=== PATIENT | male | born 1945 | race Two or more races ===

== ENCOUNTER 2024-12-27 15:03 | Inpatient (IN) | payer OTHER ==
[~2024-12-27] VITALS: Ht 152.4 cm; Wt 90.7 kg
[2024-12-27] MEDS ORDERED: GABAPENTIN300 M2 PO (16:07)
[2024-12-27] MEDS ORDERED: AMLODIPINE-BEN1 EAC2 PO (16:07)
[2024-12-27] MEDS ORDERED: ATORVASTATIN CA80 MG PO (16:07)
[2024-12-27] MEDS ORDERED: PANTOPRAZOLE SO20 MG PO (16:07)
[2024-12-27] MEDS ORDERED: CARVEDILOL25 M1 PO (16:07)
--- NOTE | 2024-12-27 16:08 | NUR ---
SE RECIBE PTE ALERTA Y ORIENTADO X3 AMBULANDO A TRIAGE CON REFERIDO DE DR PINTO QUIEN INDICA PASAR POR EMERGENCIAS YA QUE PTE PRESENTO BRADICADIO DE 30 LPM EN CLINICA. AL MOMENTO DE TRIAGE SE MIDEN SV Y SE OBSERVA QUE MAQUINA DE VITALES PRESENTA 32 LPM, SIN EMBARGO AL MOMENTO DE REALIZA EKG, EL MIMSO PRESENTA 69 LPM. SE PRESENTA EKG A DR. HERNANDEZ QUIEN INDICA UBICAR PTE EN CHAD. SE UBICA PTE.
[2024-12-27] MEDS ORDERED: 0.9 % SODIUM CHLORIDE 1,000 ML IV STA (18:10)
--- NOTE | 2024-12-27 19:06 | NUR ---
PTE ALERTA Y ORIENTADA X3. SE EDUCA A PTE SOBRE MAGGIE DE MUESTRAS Y TRATAMIENTO MEDICO ORDENADO POR MD, PTE REFIERE ENTENDER. SE REALIZAN ANDREIA DE MUESTRAS Y SE ADMINISTRA TRATAMIENTO MEDICO BAJO MEDIDAS ASEPTICAS. SE REALIZA EKG
[2024-12-27] MEDS ORDERED: NITROGLYCERIN IN 5 % DEXTROSE 50 MG/250 ML KIT IV STA (19:07)
[2024-12-27] MEDS ORDERED: NITROGLYCERIN IN 5 % DEXTROSE 50 MG/250 ML BOTTLE IV ONE (19:11)
[2024-12-27 19:22] LABS: HEMATOCRIT 30.3 % (39.0-48.0); HEMOGLOBIN 10.1 g/dL (13-16.00); MEAN CELL VOLUME 87.6 fL (80.0-100.00); MEAN CORPUSCULAR HEMOGLOBIN 29.2 pg (27.00-32.0); MEAN CORPUSCULAR HGB CONC 33.3 g/dl (32.0-36.0); RED BLOOD COUNT 3.46 M/uL (4.00-6.00); RED CELL DISTRIBUTION WIDTH 14.9 % (11.5-14.5)
[2024-12-27 19:23] LABS: PLATELET COUNT 90 K/uL (150-450)
[2024-12-27 19:38] LABS: INR 1.24; PROTHROMBIN TIME 13.3 SECONDS (9.0-11.5)
[2024-12-27 19:41] LABS: D DIMER 0.69 MG/L; PARTIAL THROMBOPLASTIN TIME 28.3 SECONDS (22.0-34.0)
[2024-12-27 19:46] LABS: ALBUMIN 3.7 gm/dL (3.4-5.0); BILIRUBIN TOTAL 1.49 mg/dL (0.3-1.2); CALCIUM 9.6 mg/dL (8.5-10.1); CREATININE SERUM 1.97 mg/dL (0.70-1.30); GFR 32.88; GLOBULINA 3.1 G/DL (2.4-3.5); TOTAL PROTEIN 6.8 gm/dL (6.4-8.2)
[2024-12-27] MEDS ORDERED: IPRATROPIUM BROMIDE 0.5 MG/2.5 ML AMPUL.NEB IH SCH (21:29)
[2024-12-27] MEDS ORDERED: ENOXAPARIN SODIUM 40 MG/0.4 ML SYRINGE SUBCUTANEO SCH (21:31)
[2024-12-27] MEDS ORDERED: PANTOPRAZOLE SODIUM 40 MG/VIAL VIAL IV SCH (21:31)
[2024-12-27] MEDS ORDERED: ATORVASTATIN CALCIUM 40 MG TABLET PO SCH (21:31)
[2024-12-27] MEDS ORDERED: ASPIRIN 81 MG TAB.CHEW PO SCH (21:31)
[2024-12-27] MEDS ORDERED: FUROsemide 20 MG/2 ML VIAL IV SCH (21:34)
[2024-12-27] MEDS ORDERED: NITROGLYCERIN IN 5 % DEXTROSE 250 ML IV SCH (21:45)
[2024-12-27] MEDS ORDERED: ACETAMINOPHEN 500 MG GEL..CAP PO PRN (21:45)
[2024-12-27] MEDS ORDERED: ENOXAPARIN SODIUM 40 MG/0.4 ML SYRINGE SUBCUTANEO ONE (22:27)
[2024-12-27] MEDS ORDERED: FUROsemide 20 MG/2 ML VIAL ONE (22:27)
[2024-12-27 23:16] VITALS: BP 132/65; O2SAT 100
[2024-12-27 23:16] LABS: ABG PH 7.404 (7.35-7.45)
[2024-12-27 23:17] LABS: ABG PO2 91.4 mmHg (80-100); BASE EXCESS -3.7 mmol/l; BICARBONATE 20.1 mmol/l (23-25); Tco2 21.1 mmol/l; allen test SATISFACTORY; o2 21 %; puncture site RADIAL LEFT
[2024-12-27 23:18] LABS: ABG pCO2 32.9 mmHg (35-45)
[2024-12-28] VITALS (15 sets, daily range): BP systolic 108–153; BP diastolic 46–77; O2SAT 99–100
[2024-12-28 00:41] LABS: PH,URINE 7.5 (5.0-8.0); URINE APPEARANCE Clear; URINE BILIRRUBIN Negative (NEGATIVE); URINE BLOOD Negative; URINE COLOR Yellow; URINE GLUCOSE Negative (NEGATIVE); URINE KETONE Negative (NEGATIVE); URINE LEUKOCYTE Negative; URINE NITRATE Negative; URINE PROTEIN Negative (NEGATIVE); URINE UROBILINOGEN 0.2 E.U./dl
[2024-12-28 00:45] LABS: URINE BACTERIA 13.4 uL (0.0-1933); URINE RBC 2.7 uL (0.0-20.8)
[2024-12-28 00:49] LABS: URINE EPITHELIAL CELLS 0.7 uL (0.0-38.8); URINE WBC 1.1 uL (0.0-23.2)
[2024-12-28 07:25] LABS: PHOSPHOROUS 3.3 mg/dL (2.5-4.9); TSH 0.969 uIU/mL (0.358-3.74)
[2024-12-28] MEDS ORDERED: FUROsemide 20 MG/2 ML VIAL ONE (20:57)
[2024-12-29] VITALS (12 sets, daily range): BP systolic 123–159; BP diastolic 49–92; O2SAT 97–100
[2024-12-29 06:25] LABS: HEMATOCRIT 29.9 % (39.0-48.0); HEMOGLOBIN 10.1 g/dL (13-16.00); MEAN CELL VOLUME 86.1 fL (80.0-100.00); MEAN CORPUSCULAR HEMOGLOBIN 29.2 pg (27.00-32.0); MEAN CORPUSCULAR HGB CONC 33.9 g/dl (32.0-36.0); RED BLOOD COUNT 3.48 M/uL (4.00-6.00); RED CELL DISTRIBUTION WIDTH 14.4 % (11.5-14.5)
[2024-12-29 06:30] LABS: PLATELET COUNT 93 K/uL (150-450)
[2024-12-29 07:29] LABS: ALBUMIN 3.6 gm/dL (3.4-5.0); BILIRUBIN TOTAL 1.9 mg/dL (0.3-1.2); CHOL HDL RATIO 2.5 (0-5.0); CREATININE SERUM 1.79 mg/dL (0.70-1.30); GFR 36.72; GLOBULINA 2.5 G/DL (2.4-3.5); MAGNESIUM 1.9 mg/dL (1.8-2.4); PHOSPHOROUS 3.5 mg/dL (2.5-4.9); POTASSIUM 4.09 mEq/L (3.5-5.1); TOTAL PROTEIN 6.1 gm/dL (6.4-8.2)
[2024-12-29] MEDS ORDERED: AMLODIPINE BESYLATE 5 MG TABLET PO SCH (17:00)
[2024-12-29] MEDS ORDERED: IRBESARTAN 150 MG TABLET PO SCH (21:06)
[2024-12-30 04:00] VITALS: BP 143/83; O2SAT 100
[2024-12-30 08:03] LABS: ALBUMIN 3.7 gm/dL (3.4-5.0); BILIRUBIN TOTAL 1.46 mg/dL (0.3-1.2); CALCIUM 9.3 mg/dL (8.5-10.1); CREATININE SERUM 2.16 mg/dL (0.70-1.30); GFR 29.56; GLOBULINA 2.8 G/DL (2.4-3.5); POTASSIUM 4.08 mEq/L (3.5-5.1); TOTAL PROTEIN 6.5 gm/dL (6.4-8.2)
[2024-12-30 08:04] LABS: HEMATOCRIT 33.2 % (39.0-48.0); HEMOGLOBIN 11.2 g/dL (13-16.00); MEAN CELL VOLUME 86.7 fL (80.0-100.00); MEAN CORPUSCULAR HEMOGLOBIN 29.2 pg (27.00-32.0); MEAN CORPUSCULAR HGB CONC 33.7 g/dl (32.0-36.0); RED BLOOD COUNT 3.83 M/uL (4.00-6.00); RED CELL DISTRIBUTION WIDTH 14.6 % (11.5-14.5)
[2024-12-30 08:09] LABS: PLATELET COUNT 107 K/uL (150-450)
[2024-12-30 08:23] VITALS: BP 135/56; O2SAT 100
[2024-12-30] MEDS ORDERED: PANTOPRAZOLE SODIUM 40 MG TABLET.DR PO SCH (09:00)
[2024-12-30 12:00] VITALS: BP 160/48; O2SAT 98
[2024-12-30 13:53] VITALS: BP 153/56; O2SAT 100
[2024-12-30 16:00] VITALS: BP 123/51; O2SAT 100
[2024-12-30] MEDS ORDERED: BUMETANIDE 0.5 MG TABLET PO SCH (17:00)
[2024-12-30 18:00] VITALS: BP 144/70; O2SAT 96
[2024-12-31 00:48] VITALS: BP 153/67; O2SAT 94
[2024-12-31 07:26] LABS: ALBUMIN 3.8 gm/dL (3.4-5.0); BILIRUBIN TOTAL 1.68 mg/dL (0.3-1.2); CALCIUM 9.7 mg/dL (8.5-10.1); GFR 32.31; GLOBULINA 2.8 G/DL (2.4-3.5); POTASSIUM 4.39 mEq/L (3.5-5.1); TOTAL PROTEIN 6.6 gm/dL (6.4-8.2)
[2024-12-31 07:44] LABS: HEMATOCRIT 35.1 % (39.0-48.0); HEMOGLOBIN 11.7 g/dL (13-16.00); MEAN CELL VOLUME 86.5 fL (80.0-100.00); MEAN CORPUSCULAR HEMOGLOBIN 28.8 pg (27.00-32.0); MEAN CORPUSCULAR HGB CONC 33.3 g/dl (32.0-36.0); RED BLOOD COUNT 4.06 M/uL (4.00-6.00); RED CELL DISTRIBUTION WIDTH 14.9 % (11.5-14.5)
[2024-12-31 07:55] LABS: PLATELET COUNT 113 K/uL (150-450)
[2024-12-31 08:40] VITALS: BP 136/66; O2SAT 97
[2024-12-31] MEDS ORDERED: METOPROLOL SUCCINATE 25 MG TAB.SR.24H PO SCH (09:00)
[2024-12-31 16:00] VITALS: BP 139/66; O2SAT 99
[2025-01-01 01:40] VITALS: BP 141/72; O2SAT 97
[2025-01-01 06:53] LABS: ALBUMIN 3.7 gm/dL (3.4-5.0); BILIRUBIN TOTAL 1.31 mg/dL (0.3-1.2); CALCIUM 9.9 mg/dL (8.5-10.1); CREATININE SERUM 2.12 mg/dL (0.70-1.30); GFR 30.21; GLOBULINA 2.8 G/DL (2.4-3.5); POTASSIUM 4.24 mEq/L (3.5-5.1); TOTAL PROTEIN 6.5 gm/dL (6.4-8.2)
[2025-01-01 08:37] VITALS: BP 136/80
[2025-01-01] MEDS ORDERED: AMLODIPINE BESYL5 MG PO (13:00)
[2025-01-01] MEDS ORDERED: LIPITOR40 M1 PO (13:01)
[2025-01-01] MEDS ORDERED: AVAPRO150 MG PO (13:01)
[2025-01-01] MEDS ORDERED: ADULT ASPIRIN81 MG PO (13:02)
== END 2025-01-01 13:28 | disposition home or self-care (01) | DRG 281 ==
LOC: ER 15:04 → ICU-2 22:04 → ICU 12-29 04:01 → MEDI 12-30 17:22
PROVIDERS: General Practice; Internal Medicine Nephrology; ADMIT Internal Medicine; ATTEND Internal Medicine
PROC: B24BZZZ Ultrasonography of Heart with Aorta (ICD-10-PCS; 2024-12-27)
PROC: 4A12X4Z Monitoring of Cardiac Electrical Activity, External Approach (ICD-10-PCS; principal; 2024-12-30)
DX: I13.0 Hypertensive heart and chronic kidney disease with heart failure and stage 1 through stage 4 chronic kidney disease, or unspecified chronic kidney disease (principal); N17.9 Acute kidney failure, unspecified; I21.A1 Myocardial infarction type 2; E78.5 Hyperlipidemia, unspecified; Z95.1 Presence of aortocoronary bypass graft; D64.9 Anemia, unspecified; D69.6 Thrombocytopenia, unspecified; I50.9 Heart failure, unspecified; R00.1 Bradycardia, unspecified; N18.32 Chronic kidney disease, stage 3b; I25.10 Atherosclerotic heart disease of native coronary artery without angina pectoris

== ENCOUNTER 2025-03-09 07:30 | Outpatient (CLI) | payer OTHER ==
[~2025-03-09 07:30] MED LIST: ADULT ASPIRIN81 MG PO; AMLODIPINE BESYL5 MG PO; AMLODIPINE-BEN1 EAC2 PO; ATORVASTATIN CA80 MG PO; AVAPRO150 MG PO; CARVEDILOL25 M1 PO; GABAPENTIN300 M2 PO; LIPITOR40 M1 PO; PANTOPRAZOLE SO20 MG PO
== END 2025-03-09 07:31 | disposition home or self-care (01) ==
LOC: NUCLEAR 07:30
PROVIDERS: ATTEND Internal Medicine
DX: I20.9 Angina pectoris, unspecified (principal)
CPT/HCPCS: 78452; A9500 ×2